=== PATIENT | female | born 1950 | race Caucasian/White ===

== ENCOUNTER 2017-01-01 18:08 | Emergency (ER) | payer OTHER ==
--- NOTE | 2017-01-01 18:38 | Emergency Department Record ---
History of Present Illness - General Chief complaint: Extremity Problem Stated complaint: INJURY TO RT ANKLE Time Seen by Provider: 01/01/17 18:29 Source: Patient Mode of Arrival: Ambulatory - History of Present Illness Initial comments: Last evening as she was leaving the house she missed a step, twisting her right ankle. IT immediately swelling up, and she was unable to put full weight on it. She waited to come in because she was in the midst of a alliance party for her grandchildren. She denies other injury. 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 Onset/Timin -: Hour(s) Location: Left, Arm History of Same: No Radiation: None Severity scale (1-10): 5 Quality: Aching Consistency: Intermittent Improves with: Rest Worsens with: Walking - Related Data Home Medications Medication Instructions Recorded Confirmed Last Taken Meloxicam [Mobic] 15 mg PO DAILY 01/01/17 01/01/17 01/01/17 Allergies Allergy/AdvReac Type Severity Reaction Status Date / Time Sulfa (Sulfonamide Allergy Intermediate HIVES Unverified 04/17/15 10:41 Antibiotics) Travel Screening - Travel/Exposure Within Last 30 Days Have you traveled within the last 30 days?: No - Travel/Exposure Within Last Year Have you traveled outside the [place] in the last year?: No - Additonal Travel Details Have you been exposed to anyone with a communicable illness?: No - Travel Symptoms Symptom Screening: None Review of Systems Reviewed: No additional complaints except as noted below Constitutional: Reports: As per HPI. Denies: Chills, Fever, Malaise, Night sweats, Weakness, Weight change Eyes: Reports: As per HPI. Denies: Eye discharge, Eye pain, Photophobia, Vision change ENT: Reports: As per HPI. Denies: Congestion, Dental pain, Ear pain, Epistaxis , Hearing loss, Throat pain Respiratory: Reports: As per HPI. Denies: Cough, Dyspnea, Hemoptysis, Stridor, Wheezes Cardiovascular: Reports: As per HPI. Denies: Arrhythmia, Chest pain, Dyspnea on exertion, Edema, Murmurs, Orthopnea, Palpitations, Paroxysmal nocturnal dyspnea, Rheumatic Fever, Syncope Endocrine: Reports: As per HPI. Denies: Fatigue, Heat or cold intolerance, Polydipsia, Polyuria Gastrointestinal: Reports: As per HPI. Denies: Abdominal pain, Constipation, Diarrhea, Hematemesis, Hematochezia, Melena, Nausea, Vomiting Genitourinary: Reports: As per HPI. Denies: Abnormal menses, Discharge, Dyspareunia, Dysuria, Frequency, Hematuria, Incontinence, Retention, Urgency Musculoskeletal: Reports: As per HPI. Denies: Arthralgia, Back pain, Gout, Joint swelling, Myalgia, Neck pain Skin: Reports: As per HPI. Denies: Bruising, Change in color, Change in hair/ nails, Lesions, Pruritus, Rash Neurological: Reports: As per HPI. Denies: Abnormal gait, Confusion, Headache, Numbness, Paresthesias, Seizure, Tingling, Tremors, Vertigo, Weakness Psychiatric: Reports: As per HPI. Denies: Anxiety, Auditory hallucinations, Depression, Homicidal thoughts, Suicidal thoughts, Visual hallucinations Hematological/Lymphatic: Reports: As per HPI. Denies: Anemia, Blood Clots, Easy bleeding, Easy bruising, Swollen glands Past Medical History - SOCIAL HISTORY Smoking Status: Never smoker Alcohol Use: None Drug Use: None - RESPIRATORY Hx Respiratory Disorders: No - CARDIOVASCULAR Hx Cardio Disorders: No - NEURO Hx Neuro Disorders: No - GI Hx GI Disorders: No - Hx Genitourinary Disorders: No - ENDOCRINE Hx Endocrine Disorders: Yes Hx Thyroid Disease: No - MUSCULOSKELETAL Hx Musculoskeletal Disorders: No - PSYCH Hx Psych Problems: No - HEMATOLOGY/ONCOLOGY Hx Hematology/Oncology Disorders: No Family Medical History Any Significant Family History?: No Physical Exam - General General Appearance: Alert, Oriented x3, Cooperative, No acute distress - Head Head exam: Normal inspection - Eye Eye exam: Normal appearance, PERRL Pupils: Normal accommodation - ENT ENT exam: Normal exam, Mucous membranes moist, Normal external ear exam, Normal orophraynx, TM's normal bilaterally Ear exam: Normal external inspection. negative: External canal tenderness Nasal Exam: Normal inspection. negative: Discharge, Sinus tenderness Mouth exam: Normal external inspection, Tongue normal Teeth exam: Normal inspection. negative: Dental caries Throat exam: Normal inspection. negative: Tonsillar erythema, Tonsillar exudate - Neck Neck exam: Normal inspection, Full ROM. negative: Tenderness - Respiratory Respiratory exam: Normal lung sounds bilaterally. negative: Respiratory distress - Cardiovascular Cardiovascular Exam: Normal rhythm, Normal heart sounds, Tachycardia - GI/Abdominal GI/Abdominal exam: Soft, Normal bowel sounds. negative: Tenderness - Rectal Rectal exam: Deferred - exam: Deferred - Extremities Extremities exam: Normal inspection, Full ROM, Normal capillary refill, Tenderness (tender, swollen, and ecchymotic over lateral malleolus; foot, proximal fib, and heel all nontender. CMS intact distally.). negative: Calf tenderness - Back Back exam: Reports: Normal inspection, Full ROM. Denies: Muscle spasm, Rash noted, Tenderness - Neurological Neurological exam: Alert, Normal gait, Oriented X3, Reflexes normal - Psychiatric Psychiatric exam: Normal affect, Normal mood - Skin Skin exam: Dry, Intact, Normal color, Warm Course Vital Signs 01/01/17 18:12 Temperature 97.8 F Pulse Rate 124 H Respiratory 20 Rate Blood Pressure 154/84 Pulse Ox 97 - Reevaluation(s) Reevaluation #1: Patient declined pain medication as she has taken mobic. 01/01/17 18:41 Reevaluation #2: Patient prefers to follow with her PCP Dr. Lu in [place] for this injury. She has motrin 800's at home which will control her pain. She was instructed to take them with antacids or food. 01/01/17 20:12 Medical Decision Making - Management Options MDM Management: No Additional Work-up Planned - Data Complexity MDM Data: X-Ray Ordered and/or Reviewed (Tiny avulsion to tip of lateral malleolus ?old or new; STS laterally.) Disposition Disposition: Discharge Clinical Impression: Right ankle sprain Qualifiers: Encounter type: initial encounter Involved ligament of ankle: other ligament Qualified Code(s): S93.491A - Sprain of other ligament of right ankle, initial encounter Disposition: Home, Self-Care Condition: (1) Good Instructions: Ankle Sprain (ED), Ankle Stirrup Splint (ED) Additional Instructions: Ice, elevate right ankle. Splint right ankle. Non weight bearing right ankle. Call Dr. Lu Tuesday for appointment for recheck 5-7 days. Motrin as directed as needed for pain. Take with food/antacid. Quality - Quality Measures Quality Measures: N/A - Blood Pressure Screening Does Patient Have Any of the Following: No Blood Pressure Classification: Pre-Hypertensive BP Reading Systolic Measurement: 154 Diastolic Measurement: 84 Screening for High Blood Pressure: < Pre-Hypertensive BP, F/U Documented > [ [id number]] Pre-Hypertensive Follow-up Interventions: Follow-up with rescreen every year.
--- NOTE | 2017-01-03 07:59 | RADIOLOGY REPORT ---
DATE: 01/01/2017. EXAM: RIGHT ANKLE, THREE VIEWS. HISTORY: Rolled ankle on uneven pavement. Pain. TECHNIQUE: Three views of the right ankle were obtained. FINDINGS: There is lateral malleolar soft tissue swelling, moderate range. Questionable lucency through the tip of the lateral malleolus which may relate to a tiny avulsive fracture. Correlate for point tenderness in this region. Moderate degenerative change/osseus remodeling involving the medial malleolus and the medial talus. Bones are osteopenic. IMPRESSION: 1. MODERATE LATERAL MALLEOLAR SOFT TISSUE SWELLING WITH SUGGESTION OF A TINY AVULSIVE FRACTURE INVOLVING THE TIP OF THE LATERAL MALLEOLUS/DISTAL FIBULA. 2. CHRONIC CHANGES INVOLVING THE MEDIAL MALLEOLUS AND MEDIAL TALUS. 3. OSTEOPENIA. JOB NUMBER: [id number] MTDD
== END 2017-01-01 20:55 | disposition home or self-care (01) ==
LOC: ER 18:08
DX: S93.491A Sprain of other ligament of right ankle, initial encounter (principal); W10.8XXA Fall (on) (from) other stairs and steps, initial encounter; Y92.009 Unspecified place in unspecified non-institutional (private) residence as the place of occurrence of the external cause
CPT/HCPCS: 99283